=== PATIENT | female | born 1955 | race Caucasian/White ===

== ENCOUNTER → 2017-12-17 08:27 | Outpatient (CLI) | payer BC, SELFPAY ==
--- NOTE | 2017-12-17 08:29 | MM_ITS ---
MM Dig screening mamm BI w/CAD CAD Screening COMPARISON: Digital mammograms with CAD 07/11/2016 and 07/02/2015 INDICATION: There is no personal or family history of breast cancer. TECHNIQUE: Standard CC and MLO images were obtained. R2 CAD reviewed. FINDINGS: There is a diffusely dense and heterogenic parenchymal pattern lessening the sensitivity of mammography. There is a possible developing asymmetric density left breast inner quadrant at approximately the 9:00 position. This likely is a summation shadow in view of the markedly dense and heterogenic parenchymal pattern but recommend patient return for spot compression MLO and CC views and ultrasound may be necessary as well. There are no suspicious microcalcifications. IMPRESSION: Dense parenchymal pattern with possible developing asymmetric density left breast BI-RADS Category: 0 Need Additional Imaging Evaluation RECOMMENDED FOLLOW-UP: IMM - IMMEDIATE FOLLOW-UP RECOMMENDED (A letter has been sent to the patient regarding results of the study.)
--- NOTE | 2017-12-17 08:29 | XR_ITS ---
DEXA SCAN.-BONE DENSITY STUDY HIPS AND LUMBAR SPINE HISTORY: Postmenopausal female 61-year-old female TECHNIQUE: DEXA scan hip and lumbar spine The most complete data summary and color graphic presentation of the today's ( and any prior ) DEXA findings are available in PACS. Definition and treatment guidelines included. COMPARISON: Previous 05/29/2014 & March 2013 ======= LUMBAR SPINE: ... Overall well mean normal bone density lumbar spine. L2 vertebral body demonstrates the lowest T score 1.5 with BMD1.382 g/cm sq = normal Overall mean lumbar L1-L4 T score 2.6 with BMD1.496 g/cm sq . = Normal On the March 2013 prior available lumbar comparisons DEXA the mean lumbar BMD was1.47g/cm sq Thus when comparing today's study to the prior exam there's been a 1.8 % increasing mean bone density at the lumbar spine since 2013. HIPS: Femoral neck density is best predictor of hip fracture risk . Left femoral neck demonstrates the lowest T score = 0.2 with BMD1.067 g/cm sq . Right femoral neck BMD 1.08 with T score = 0.3 all region included with today's Hip Mean T score = 1.2 with BMD1.157 g/cm sq . May 2014 overall hip T score 1.2 with mean BMD1.157 g/cm sq Thus this reflects a 2.7% increasein overall mean bone density at the hips in the interval. IMPRESSION 1. LUMBAR SPINE: Above Normal density lumbar spine ) 2. HIPS above Normal density hips bilateral WHO criteria for post-menopausal, Women: Normal: T-score at or above -1 SD Osteopenia: T-score between -1 and -2.5 SD Osteoporosis: T-score at or below -2.5 SD
== END ==
PROVIDERS: Visit Provider Obstetrics & Gynecology
DX: Z12.31 Encounter for screening mammogram for malignant neoplasm of breast (principal); N93.8 Other specified abnormal uterine and vaginal bleeding
CPT/HCPCS: 77067; 77080

== ENCOUNTER → 2018-01-01 13:28 | Outpatient (CLI) | payer BC, SELFPAY ==
--- NOTE | 2018-01-01 13:32 | MM_ITS ---
MM Dig mamm DX unilat LT CAD, US breast LT complete INDICATION: Follow-up abnormal mammogram ORDERING PHYSICIAN: Fidel Silva MD PATIENT AGE: 62 years COMPARISON: 12/17/2017 TECHNIQUE: Spot compression views of the left breast and left breast ultrasound FINDINGS: There is dense fibroglandular tissue which decreases sensitivity of mammography. The asymmetric density in the medial aspect of the left breast does appear to compress out as fibroglandular tissue. No malignant appearing mass or malignant appearing microcalcification. There is some minimal residual density in the lower and medial aspect of the left breast which may be due to fibroglandular tissue as ultrasound is negative Left breast ultrasound: No cystic or solid nodules evident. IMPRESSION: No convincing evidence of malignancy. BI-RADS Category: 3 Probably Benign Finding Short Term Follow-up RECOMMENDED FOLLOW-UP: 6M - 6 MONTH FOLLOW-UP (A letter has been sent to the patient regarding results of the study.)
== END ==
PROVIDERS: PCP Obstetrics & Gynecology; Visit Provider Obstetrics & Gynecology
DX: R92.8 Other abnormal and inconclusive findings on diagnostic imaging of breast (principal)
CPT/HCPCS: 76641; 77065

== ENCOUNTER → 2018-06-24 12:50 | Outpatient (CLI) | payer BC, SELFPAY ==
--- NOTE | 2018-06-24 12:59 | MM_ITS ---
MM Dig mamm DX unilat LT CAD Ordering Physician: Fidel Silva MD Patient Age: 62 years Female COMPARISON: December 17, 2017, July 11, 2016.... Also December 2017 left mammogram & ultrasound INDICATION: Follow-up asymmetric density deep left breast. TECHNIQUE: MLO and cc view both breast along with spot CC and MLO views. FINDINGS: A fairly dense heterogeneous fibroglandular pattern, again observed. This does decrease sensitivity of mammography somewhat Than today's study show no new areas of concern in the area questioned on the November 2017 study seems to compress out with no areas of significant concern overall. Patient may resume bilateral follow-up in 6 months to resume annual schedule. IMPRESSION: No areas of significant concern. Dense breasts decreased sensitivity mammography Recommend Bilateral mammogram in 6 months to resume resume annual schedule. . BI-RADS Category: 2 Benign Finding(s) RECOMMENDED FOLLOW-UP: 6M 6 MONTH FOLLOW-UP A letter has been sent to the patient regarding results of the study.)
--- NOTE | 2018-06-24 12:59 | XR_ITS ---
DEXA SCAN.-BONE DENSITY STUDY HIPS AND LUMBAR SPINE HISTORY:. 62-year-old black postmenopausal female.Previously taking Fosamax in past. Now takes calcium and vitamin D TECHNIQUE: DEXA scan hip and lumbar spine The most complete data summary and color graphic presentation of the today's ( and any prior ) DEXA findings are available in PACS. Definition and treatment guidelines included. COMPARISON: Previous DEXA from 12/17/2017. Also DEXA. 04/21/2013. Although is also May 2014 study but incomplete data. LUMBAR SPINE: Above Normal bone density L2 vertebral body demonstrates the lowest T score 1.9 with BMD1.4-3 g/cm sq Overall mean lumbar L1-L4 T score 3.1 with BMD1.55 to g/cm sq . 2018 prior DEXA the mean T score 2.6 with BMD was1.496g/cm sq Thus when comparing today's study to the prior exam there's been a 3.7% % increasing mean bone density at the lumbar spine in the interval. There is also increased overall bone density when compared back to 2013 ======== HIPS:. Normal bone density Femoral neck density is best predictor of hip fracture risk . Right femoral neck demonstrates the lowest T score 0.0 with BMD1.034 g/cm sq . Left femoral neck T score = 0.1; with BMD 1.059 Averaging all region included with today's Hip Mean T score 1.3 with BMD1.176 g/cm sq . = Normal bone density/above average . 2018 prior DEXA overall hip T score 1.4 with BMD 1.188. g/cm sq Thus this reflects a 1% decreasein overall mean bone density at the hips in the interval. IMPRESSION 1. LUMBAR SPINE: Normal bone density lumbar spine. (In fact T score values are well above the mean with overall lumbar T score = 3.1. Increasing bone density lumbar region since prior studies) 2. HIPS: Normal bone density at the hips WHO criteria for post-menopausal, Women: Normal: T-score at or above -1 SD Osteopenia: T-score between -1 and -2.5 SD Osteoporosis: T-score at or below -2.5 SD
== END ==
PROVIDERS: Visit Provider Obstetrics & Gynecology
DX: M81.0 Age-related osteoporosis without current pathological fracture (principal); R92.8 Other abnormal and inconclusive findings on diagnostic imaging of breast
CPT/HCPCS: 77065; 77080

== ENCOUNTER → 2018-12-31 10:41 | Outpatient (CLI) | payer BC, SELFPAY ==
--- NOTE | 2018-12-31 10:42 | MM_ITS ---
PROCEDURE: MM DIG SCREENING MAMM BI W/CAD Patient Age:63Y CLINICAL INDICATION: SCREENING taking Premarin.. No new complaints. Noncontributory family history. Previous benign excisional biopsy left breast 12 o'clock COMPARISON: [facility] DIG MAMM-SCREEN [facility]IN[facility] from 07/02/2015 [facility] DIG MAMM-SCREEN [facility]INITY W/CAD from 07/11/2016 [facility] MM Dig screening mamm BI w/CAD from 12/17/2017 [facility] MM Dig mamm DX unilat LT CAD from 01/01/2018 [facility] MM Dig mamm DX unilat LT CAD from 06/24/2018 TECHNIQUE: Standard CC and MLO images were obtained. R2 CAD reviewed. FINDINGS: Fairly dense breast pattern throughout both breast bilaterally which somewhat decreases sensitivity of mammography. No new findings of significant concern. No dominant or suspicious mass. No suspicious calcifications. Similar overall pattern to previous study with no new areas of significant concern. Bilateral follow-up 1 year recommended and self breast exam encouraged IMPRESSION: Stable bilateral mammogram Moderately dense breast of somewhat decreases sensitivity but no new areas of significant concern Bilateral follow-up 1 year recommended and encouraged BI-RAD Category: 2 Benign Finding(s) FOLLOW-UP: 1YR 1 Year Follow-up (A letter has been sent to the patient regarding results of the study.) Dictated by: Nicholas Lamas MD 01/03/2019 09:00 Electronically signed by Nicholas Lamas MD in [place] 01/03/2019 09:00
== END ==
PROVIDERS: Visit Provider Obstetrics & Gynecology
DX: Z12.31 Encounter for screening mammogram for malignant neoplasm of breast (principal)
CPT/HCPCS: 77067

== ENCOUNTER → 2020-01-07 10:09 | Outpatient (CLI) | payer MEDICARE, BC, SELFPAY ==
--- NOTE | 2020-01-07 10:10 | MM_ITS ---
PROCEDURE: MM DIG SCREENING MAMM BI W/CAD Referring Doctor: Abdirahman Gonzalez Patient Age:64Y CLINICAL INDICATION: screening xmg Takes Premarin. No new complaints previous excisional biopsy left breast COMPARISON: MG [facility] DIG MAMM-SCREEN TRINITY from 07/02/2015 MG [facility] DIG MAMM-SCREEN [facility]INITY W/CAD from 07/11/2016 MG [facility] MM Dig screening mamm BI w/CAD from 12/17/2017 MG [facility] MM Dig mamm DX unilat LT CAD from 01/01/2018 MG DXLT MM Dig mamm DX unilat LT CAD from 06/24/2018 MG MM DIG SCREENING MAMM BI W/CAD from 12/31/2018 TECHNIQUE: Standard CC and MLO images were obtained. R2 CAD reviewed. Bilateral digital breast tomosynthesis included. Additional axillary CC view left breast included FINDINGS: Dense heterogeneous breast pattern decreases sensitivity of mammography but however multiple prior films are helpful in supporting stable character bilaterally with no new dominant nor new suspicious mass.. Exogenous hormones/Premarin may contribute to the increased breast density. (Would note that breast ultrasound can be useful complement/augment to mammography in screening dense breast of this character and particularly useful if if any palpable areas are encountered) No suspicious calcifications. Bilateral follow-up 1 year recommended and would be encouraged. IMPRESSION: No suspicious findings/No new areas of significant concern Dense heterogeneous breast pattern bilaterally does decreases sensitivity of mammography in this patient. (Ultrasound can be useful complement/augment mammography in screening dense breast of this character. Ultrasound particularly useful any palpable areas are encountered) Bilateral follow-up mammogram 1 year recommended/encouraged BI-RAD Category: 2 Benign Finding(s) FOLLOW-UP: 1YR 1 Year Follow-up (A letter has been sent to the patient regarding results of the study.) Dictated by: Nicholas Lamas MD 01/09/2020 20:40 Nicholas Lamas MD in [place] 01/09/2020 20:40
== END ==
PROVIDERS: Visit Provider Nurse Practitioner Obstetrics & Gynecology
DX: Z12.31 Encounter for screening mammogram for malignant neoplasm of breast (principal)
CPT/HCPCS: 77063; 77067

== ENCOUNTER → 2021-01-19 09:22 | Outpatient (CLI) | payer MEDICARE, BC, SELFPAY ==
--- NOTE | 2021-01-19 09:22 | XR_ITS ---
PROCEDURE: XR DEXA AXIAL SKELETON CLINICAL HISTORY: Dexa Scan for Screening and post menopausal COMPARISON: CR DEXAAX XR DEXA axial skeleton from 06/24/2018 FINDINGS: The right hip BMD is 0.922 with a T-score of 0.7. The left hip BMD is 1.070 with a T-score of 1.0. The lumbar spine BMD is 1.241 with a T-score of 1.8. Previously the lowest density was in the right femoral neck with T-score of 0.0 IMPRESSION: This patient is considered normal according to the World Health Organization criteria. Fracture risk is low. Based on these results a follow-up exam is recommended in 2 year. Dictated by: Burt Shrestha MD 01/24/2021 07:22 Burt Shrestha MD in [place] 01/24/2021 07:22
--- NOTE | 2021-01-19 09:22 | MM_ITS ---
PROCEDURE: MM DIG SCREENING MAMM BI W/CAD Digital Breast Tomosynthesis Included CLINICAL INDICATION: Routine Screening Mammogram There is no personal or family history of breast cancer. There has been a previous biopsy left breast for benign disease. The patient currently is on Premarin. COMPARISON: MG DXLT MM Dig mamm DX unilat LT CAD from 06/24/2018 MG MM DIG SCREENING MAMM BI W/CAD from 12/31/2018 MG MM DIG SCREENING MAMM BI W/CAD from 01/07/2020 TECHNIQUE: Standard CC and MLO images and 3D Tomosynthesis was obtained. R2 CAD reviewed. FINDINGS: There is a markedly and diffusely dense and heterogenic parenchymal pattern bilaterally definitely decreasing the sensitivity of mammography. Tomosynthesis imaging is very helpful this with this type of dense breast parenchyma. There are no CAD markings. There is a tiny benign-appearing microcalcification right breast. There is no new or suspicious lesion in either breast and no suspicious microcalcifications. IMPRESSION: Diffusely dense parenchymal pattern with no suspicious lesions seen BI-RAD Category: 1 Negative FOLLOW-UP: 1YR 1 Year Follow-up (A letter has been sent to the patient regarding results of the study.) Dictated by: Dr. Young Betts MD 01/21/2021 15:43 Dr. Young Betts MD in [place] 01/21/2021 15:43
== END ==
PROVIDERS: Visit Provider Nurse Practitioner Obstetrics & Gynecology
DX: Z78.0 Asymptomatic menopausal state (principal); Z12.31 Encounter for screening mammogram for malignant neoplasm of breast
CPT/HCPCS: 77063; 77067; 77080

== ENCOUNTER → 2022-02-07 14:14 | Outpatient (CLI) | payer MEDICARE, BC, SELFPAY ==
--- NOTE | 2022-02-07 14:29 | MM_ITS ---
PROCEDURE INFORMATION: Exam: MG Bilateral Screening 3D Mammography Exam date and time: 02/07/2022 2:29 PM Age: 66 years old Clinical indication: Screening examination. No family history of breast cancer. TECHNIQUE: Imaging protocol: Bilateral Screening tomosynthesis and 2D mammography including computer-aided detection (CAD) when performed. COMPARISON: 1. MG MM DIG SCREENING MAMM BI W/CAD 01/19/2021 10:02 AM 2. MG MM DIG SCREENING MAMM BI W/CAD 01/07/2020 10:11 AM 3. MG MM DIG SCREENING MAMM BI W/CAD 12/31/2018 10:56 AM 4. MG DXLT MM Dig mamm DX unilat LT CAD 06/24/2018 1:45 PM FINDINGS: MAMMOGRAPHY: Breast composition: The breasts are extremely dense, which lowers the sensitivity of mammography. Mass: None. Architectural distortion: None. Calcifications: No suspicious calcifications. Asymmetric density: None. Skin thickening: None. Axillary adenopathy: None. IMPRESSION: No mammographic evidence of malignancy. Annual screening is recommended unless otherwise clinically indicated. ASSESSMENT: BI-RADS Category 1: Negative
== END ==
PROVIDERS: PCP Family Medicine; Visit Provider Nurse Practitioner Obstetrics & Gynecology
DX: Z12.31 Encounter for screening mammogram for malignant neoplasm of breast (principal)
CPT/HCPCS: 77063; 77067

== ENCOUNTER → 2023-02-12 08:23 | Outpatient (CLI) | payer MEDICARE, BC, SELFPAY ==
--- NOTE | 2023-02-12 08:27 | XR_ITS ---
FINAL REPORT CLINICAL HISTORY: post menopausal COMPARISON: None FINDINGS: Using L1-4, the bone mineral density of the spine is 1.283 g/cm2, corresponding to T-score of 2.1, within normal limit. Using the left hip, the bone mineral density of the femoral neck is 0.930 g/cm2, corresponding to a T-score of 0.7, within normal limits. Using the right hip, the bone mineral density of the femoral neck is 0.968 g/cm2, corresponding to a T-score of 1.1, within normal limits. FRAX not reported because all T-scores at or above -1.0. NOTE: T-score: Standard deviation compared with peak bone mass of young adult mean. *Following the recommendations of the International Society of Bone densitometry, classification of hip BMD is based on the lower of two T-scores; total hip or femoral neck. IMPRESSION: Normal bone mineral density of the lumbar spine and hips. Reviewed, Interpreted and Dictated by Roderick Lewis III, MD Transcribed by Taty Razo Authenticated and [facility]
--- NOTE | 2023-02-12 08:27 | MM_ITS ---
PROCEDURE INFORMATION: Exam: MG Bilateral Screening 3D Mammography Exam date and time: 02/12/2023 8:55 AM Age: 67 years old Clinical indication: Screening examination TECHNIQUE: Imaging protocol: Bilateral Screening tomosynthesis and 2D mammography including computer-aided detection (CAD) when performed. COMPARISON: 1. MG MM DIG SCREENING MAMM BI W/CAD 02/07/2022 2:29 PM 2. MG MM DIG SCREENING MAMM BI W/CAD 01/19/2021 10:02 AM FINDINGS: MAMMOGRAPHY: Breast composition: The breasts are extremely dense, which lowers the sensitivity of mammography. Mass: None. Architectural distortion: None. Calcifications: No suspicious calcifications. Asymmetric density: None. Skin thickening: None. Axillary adenopathy: None. IMPRESSION: No mammographic evidence of malignancy. Annual screening is recommended unless otherwise clinically indicated. ASSESSMENT: BI-RADS Category 1: Negative
== END ==
PROVIDERS: PCP Family Medicine; Visit Provider Nurse Practitioner Obstetrics & Gynecology
DX: Z78.0 Asymptomatic menopausal state (principal); Z12.31 Encounter for screening mammogram for malignant neoplasm of breast
CPT/HCPCS: 77063; 77067; 77080

== ENCOUNTER 2024-03-11 10:19 | Outpatient (CLI) | payer MEDICARE, BC, SELFPAY ==
--- NOTE | 2024-03-11 10:22 | MM_ITS ---
PROCEDURE INFORMATION: Exam: MG Bilateral Screening 3D Mammography Exam date and time: 03/11/2024 10:08 AM Age: 68 years old Clinical indication: Screening examination. TECHNIQUE: Imaging protocol: Bilateral Screening tomosynthesis and 2D mammography including computer-aided detection (CAD) when performed. COMPARISON: 1. MG MM DIG SCREENING MAMM BI W/CAD 02/12/2023 8:55 AM 2. MG MM DIG SCREENING MAMM BI W/CAD 02/07/2022 2:29 PM FINDINGS: MAMMOGRAPHY: Breast composition: The breasts are heterogeneously dense, which may obscure small masses. Mass: None. Architectural distortion: None. Calcifications: No suspicious calcifications. Asymmetric density: None. Skin thickening: None. Axillary adenopathy: None. IMPRESSION: No mammographic evidence of malignancy. Annual screening is recommended unless otherwise clinically indicated. ASSESSMENT: BI-RADS Category 1: Negative.
== END 2024-03-11 23:59 | disposition home or self-care (01) ==
LOC: RAD 10:22
PROVIDERS: PCP Family Medicine; Visit Provider Nurse Practitioner Obstetrics & Gynecology
DX: Z12.31 Encounter for screening mammogram for malignant neoplasm of breast (principal)
CPT/HCPCS: 77063; 77067